=== PATIENT | female | born 1995 | race Caucasian/White ===

== ENCOUNTER 2017-04-23 15:06 | Emergency (ER) | payer BC ==
[2017-04-23 15:48] VITALS: BP 99/64
[2017-04-23] MEDS ORDERED: Albuterol 2.5 MG/3 ML NEB.SOL* (0.083%) INH ONE (16:27)
--- NOTE | 2017-04-23 16:31 | UC ---
Respiratory Complaint HPI - HPI Summary HPI Summary: increased SOB, wheezing, fever, fatique, for the past 3-4 days. barky cough, was productive, feels like she cant bring anything up - History of Current Complaint Chief Complaint: UCGeneralIllness Stated Complaint: COUGH/CONGESTION Time Seen by Provider: 04/23/17 16:15 Hx Obtained From: Patient Hx Last Menstrual Period: IUD ?: No Onset/Duration: Sudden Onset, Lasting Days Timing: Constant Severity Initially: Mild Severity Currently: Severe Character: Cough: Nonproductive Aggravating Factors: Exertion, Recumbent Position Alleviating Factors: Nothing Associated Signs And Symptoms: Positive: Dyspnea, Fever, Chills, Wheezing, URI - Allergies/Home Medications Allergies/Adverse Reactions: Allergies Allergy/AdvReac Type Severity Reaction Status Date / Time Penicillins Allergy Rash Verified 04/23/17 15:49 Home Medications: Home Medications Pseudoephedrine-Guaifenesin [Mucinex D 60-600 mg] 2 tab PO DAILY PRN 04/23/17 [ History Confirmed 04/23/17] PMH/Surg Hx/FS Hx/Imm Hx Previously Healthy: Yes - Surgical History Surgical History: None - Family History Known Family History: Negative: Cardiac Disease, Hypertension - Social History Alcohol Use: Occasionally Substance Use Type: None Smoking Status (MU): Never Smoked Tobacco Review of Systems Constitutional: Fever, Fatigue Skin: Negative Eyes: Negative ENT: Sore Throat Respiratory: Shortness Of Breath, Cough Cardiovascular: Negative Gastrointestinal: Negative Genitourinary: Negative Motor: Negative Neurovascular: Negative Musculoskeletal: Negative Neurological: Headache Psychological: Negative Is Patient Immunocompromised?: No All Other Systems Reviewed And Are Negative: Yes Physical Exam Triage Information Reviewed: Yes Appearance: Well-Nourished, Ill-Appearing, Pain Distress Vital Signs: Initial Vital Signs Temp 100.2 F 04/23/17 15:40 Pulse 108 04/23/17 15:40 Resp 20 04/23/17 15:40 BP 99/64 04/23/17 15:40 Pulse Ox 96 04/23/17 15:40 Vital Signs Reviewed: Yes Eye Exam: Normal ENT: Positive: Pharyngeal erythema, TMs normal Dental Exam: Normal Neck exam: Normal Neck: Positive: Supple, Nontender, Enlarged Nodes @ - bilateral cervical Respiratory Exam: Normal Respiratory: Positive: Respiratory distress - mild, Decreased breath sounds, Crackles, Wheezing, Inspiration, Other: - chest is tender, Cardiovascular: Positive: No Murmur, Pulses Normal, Tachycardia Abdominal Exam: Normal Abdomen Description: Positive: Nontender, No Organomegaly, Soft Bowel Sounds: Positive: Present Musculoskeletal Exam: Normal Musculoskeletal: Positive: Strength Intact, ROM Intact, No Edema Neurological Exam: Normal Neurological: Positive: Alert, Muscle Tone Normal Psychological Exam: Normal Skin Exam: Normal UC Diagnostic Evaluation - Laboratory O2 Sat by Pulse Oximetry: 96 Respiratory Course/Dx - Course Course Of Treatment: hx obtained, exam performed, meds reviewed, neb treatment given, chest xray obtained treated for pneumonia, - Differential Dx/Diagnosis Differential Diagnosis/HQI/PQRI: Asthma, Bronchitis, Lower Resp Infection, Sinusitis Provider Diagnoses: Lower respiratory infection. fever. cough/sob Discharge - Discharge Plan Condition: Stable Disposition: HOME Prescriptions: Azithromycin TAB* [Zithromax TAB (Z-BLAINE) 250 mg #6 tabs] 250 mg PO DAILY #4 tab predniSONE TAB* [Deltasone TAB*] 40 mg PO DAILY #14 tab Patient Education Materials: Pneumonia (ED) Forms: *School Release Additional Instructions: 1. Take the medication as directed 2. Increase fluid intake 3. Get plenty of rest 4. Tylenol 650-1000 mg every 6 hours for fever and pain
[2017-04-23] MEDS ORDERED: Albuterol HFA INHALER* 8 gm MDI INH ONE (16:57)
[2017-04-23] MEDS ORDERED: Azithromycin TAB* 250 MG PO ONE (16:58)
--- NOTE | 2017-04-23 16:58 | RAD ---
INDICATION: Shortness of breath, coughing. Recent tobacco cessation. COMPARISON: No relevant prior exams available on the [facility] for comparison. TECHNIQUE: Dual energy PA and routine lateral views of the chest were obtained. REPORT: Elevated lung volumes may reflect exuberant inspiratory effort for examination or presence of obstructive lung disease. Mild bibasilar airspace consolidation is suspicious for inflammatory infiltrate given absence of volume loss to favor atelectasis. Negative for pleural effusion or pneumothorax. The heart, pulmonary vasculature, and mediastinal contours are unremarkable. Unremarkable soft tissue contours and osseous structures. IMPRESSION: Mild bibasilar airspace consolidation suspicious for pneumonia. Potential obstructive lung disease.
== END 2017-04-23 17:39 | disposition home or self-care (01) ==
LOC: UCCORT 15:06
DX: J22 Unspecified acute lower respiratory infection (principal); R50.9 Fever, unspecified; R05 Cough; R06.02 Shortness of breath; Z88.0 Allergy status to penicillin
CPT/HCPCS: 71020; 99203; A9270-GY; G0463